=== PATIENT | male | born 1980 | race Caucasian/White ===

== ENCOUNTER 2020-01-13 14:15 | Emergency (ER) | payer BC ==
[~2020-01-13] VITALS: Ht 167.6 cm; Wt 138.6 kg
[2020-01-13 15:02] LABS: BASOPHILS # (AUTO) 0.1 X10'3 (0-0.2); BASOPHILS % (AUTO) 0.5 % (0-1); EOSINOPHILS # (AUTO) 0.2 X10'3 (0-0.9); EOSINOPHILS % (AUTO) 1.5 % (0-6); HEMATOCRIT 45.8 % (42.0-52.0); HEMOGLOBIN 15.3 g/dl (14.0-17.9); MEAN CORPUSCULAR HEMOGLOBIN 27.6 PG (27.0-31.0); MEAN CORPUSCULAR HGB CONC 33.4 g/dL (33.0-36.5); MEAN CORPUSCULAR VOLUME 82.8 FL (78-98); MEAN PLATELET VOLUME 7.9 FL (7.4-10.4); MONOCYTES # (AUTO) 0.7 X10'3 (0-0.9); MONOCYTES % (AUTO) 5.3 % (2-12); NEUTROPHILS # (AUTO) 10.3 X10'3 (1.8-7.7); NEUTROPHILS % (AUTO) 77.7 % (42-75); PLATELET COUNT 345 X10'3 (140-440); RED BLOOD COUNT 5.53 X10'6 (4.70-6.10); RED CELL DISTRIBUTION WIDTH 15.5 % (11.5-14.5); WHITE BLOOD COUNT 13.2 X10'3 (4.5-11.0)
[2020-01-13 15:06] LABS: CLARITY,URINE CLEAR (Clear); COLOR,URINE YELLOW (Yellow); GLUCOSE, URINE NEGATIVE (Neg); KETONES,URINE NEGATIVE (Neg); LEUKOCYTE ESTERASE ,URINE NEGATIVE (Neg); NITRITES, URINE NEGATIVE (Neg); OCCULT BLOOD,URINE NEGATIVE (Neg); PROTEIN,URINE NEGATIVE (Neg); UROBILINOGEN,URINE 0.2 E.U/dL (0.2-1.0)
[2020-01-13 15:08] LABS: UA COLLECTION TYPE URINAL
[2020-01-13 15:11] LABS: URINE AMPHETAMINE SCREEN NEGATIVE (Neg); URINE BARBITUATE SCREEN NEGATIVE (Neg); URINE BENZODIAZEPINES SCREEN NEGATIVE (Neg); URINE CANNABINOID SCREEN NEGATIVE (Neg); URINE COCAINE SCREEN NEGATIVE (Neg); URINE METHADONE SCREEN NEGATIVE (Neg); URINE OPIATE SCREEN NEGATIVE (Neg); URINE PHENCYCLIDINE SCREEN NEGATIVE (Neg)
[2020-01-13 15:17] LABS: ALANINE AMINOTRANSFERASE 30 U/L (12-78); ALBUMIN 3.8 G/DL (3.4-5.0); ALBUMIN/GLOBULIN RATIO 0.9 (1.1-1.5); ALKALINE PHOSPHATASE 77 IU/L (46-116); ANION GAP 7 (8-16); ASPARTATE AMINO TRANSFERASE 19 U/L (10-37); BILIRUBIN,TOTAL 0.4 MG/DL (0.1-1.0); BLOOD UREA NITROGEN 8 MG/DL (7-18); BUN/CREATININE RATIO 7.8 (5.4-32.0); CALCIUM 9.5 MG/DL (8.5-10.1); CHLORIDE 103 MMOL/L (99-107); CREATININE 1.02 MG/DL (0.60-1.10); GLUCOSE 109 MG/DL (70-104); POTASSIUM 3.8 MMOL/L (3.5-5.1); SODIUM 139 MMOL/L (135-145); TOTAL CARBON DIOXIDE 29.3 MMOL/L (24-32); TOTAL PROTEIN 7.9 G/DL (6.4-8.2); eGFR 81 ML/MIN
[2020-01-13 15:27] LABS: ETHANOL < 0.010 GM/DL (0.0-0.010)
--- NOTE | 2020-01-13 16:30 | NUR ---
Pt cooperative and wants to be here to get help. Denies any SI.
[2020-01-13] MEDS ORDERED: BUSP10TA11 PO (17:26)
[2020-01-13] MEDS ORDERED: VORT10TA PO (17:26)
[2020-01-13] MEDS ORDERED: LITH150C8 PO ×2 (17:26)
[2020-01-13] MEDS ORDERED: LORA-269 PO (17:26)
[2020-01-13] MEDS ORDERED: VORT20TA PO (17:26)
--- NOTE | 2020-01-13 17:40 | NUR ---
PATIENT'S MEDICATION REC COMPLETED. MEDS TAKEN TO PHARMACY FOR SAFE KEEPING. PATIENT INFORMED THAT MEDS WILL BE KEPT IN PHARMACY UNTIL DISCHARGE. PATIENT VERBALIZED UNDERSTANDING.
--- NOTE | 2020-01-13 19:25 | NUR ---
Patient was walked over to overflow from main ER by ERIN Poole. He is A&Ox3, CONTI and is appropriate.
--- NOTE | 2020-01-13 20:36 | NUR ---
Patient talking with [facility].
--- NOTE | 2020-01-13 21:00 | NUR ---
assumed care of patient why primary RN Rachel breaks . Pt up out of bed to bathroom . steady gait. pt asked for water to be poured in to his c pap machine to the fill line . Assisted patient in filling c pap with water to the fill line. Pt coroporative , good eye contact . pt in the direct line of sight of nursing staff. Will comntimue to monitor and reassess as needed
[2020-01-13] MEDS ORDERED: LORazepam 1 MG tablet PO PRN (22:05)
[2020-01-14 05:33] VITALS: BP 119/78
--- NOTE | 2020-01-14 06:30 | NUR ---
Patient resting with eyes closed, cpap on
--- NOTE | 2020-01-14 07:30 | NUR ---
Awake and cpap off, sitting quietly at edge of bed
[2020-01-14] MEDS ORDERED: voritoxetine HBr tablet 5 MG TABLET PO SCH (08:00)
[2020-01-14] MEDS ORDERED: non-formulary drug (Vortioxetine Hydrobromide (Brintellix) 1 TAB) PO SCH (08:00)
[2020-01-14] MEDS ORDERED: busPIRone 5mg tablet PO SCH (08:00)
[2020-01-14] MEDS ORDERED: lithium carbonate 150mg capsule PO SCH ×2 (08:00→21:00)
--- NOTE | 2020-01-14 08:37 | NUR ---
Patient tearful. States having anxiety that makes him nauseated. Given a prn dose of ativan with his meds
--- NOTE | 2020-01-14 09:20 | NUR ---
Patient now resting in bed with eyes closed
--- NOTE | 2020-01-14 10:30 | NUR ---
Patient seen and accepted by [facility]
--- NOTE | 2020-01-14 11:00 | NUR ---
Spoke with his mom on the phone, has been crying and tearful most of morning
--- NOTE | 2020-01-14 11:41 | NUR ---
Breaking primary RN, pt is wandering around, he just brought the phone back, then ambulated to bathroom
== END 2020-01-14 12:05 ==
LOC: ER 14:17
DX: F23 Brief psychotic disorder (principal); F41.9 Anxiety disorder, unspecified; F31.9 Bipolar disorder, unspecified; F17.200 Nicotine dependence, unspecified, uncomplicated; Z79.899 Other long term (current) drug therapy
CPT/HCPCS: 36415; 80053; 80178; 80305; 80320; 81003; 84443; 85025; 99285

== ENCOUNTER 2020-01-14 11:18 | Inpatient (IN) | payer BC ==
[~2020-01-14] VITALS: Ht 170.2 cm; Wt 120.4 kg
[~2020-01-14 11:18] MED LIST: BUSP10TA11 PO; LITH150C8 PO; LORA-269 PO; VORT10TA PO; VORT20TA PO
--- NOTE | 2020-01-14 12:15 | NUR ---
Pt. transfered from ER overflow to [facility] escorted by staff and security in wheelchair. Safety check down and pt.'s belongings inventoried. 2 RN skin assessment done and pt. showered and sitting in his room 39-year-old male with a history of depression and bipolar drove himself to ED with c/o severe anxiety and depression for the last 3 weeks to the point that he could not function. Pt. feels that social isolation has contributed to a lot of his symptoms. Pt. reports being completely overwhelmed by crying episodes. 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 Pt. states, "I think my mind just started wandering and going to dark places and it got me down". Pt. reports he has been compliant with his psychiatric medications including lithium, Invega, BuSpar, Ativan, and Trintellix. He does regularly see a therapist has an appointment scheduled for 01/31/2020. Pt. denies SI/HI, A/V hallucinations. Pt. reports gaining 5 lbs in the last 3 months from poor eating habits.
[2020-01-14 13:00] VITALS: BP 144/77
[2020-01-14] MEDS ORDERED: acetaminophen 325mg tablet PO PRN ×2 (13:20)
[2020-01-14] MEDS ORDERED: loperamide 2mg capsule PO PRN (13:20)
[2020-01-14] MEDS ORDERED: mag hydrox/Alum hydrox/simeth 30ml oral suspension PO PRN (13:20)
[2020-01-14] MEDS ORDERED: nicotine 21mg patch - 24 hr TD ONE (13:20)
[2020-01-14] MEDS ORDERED: magnesium hydroxide 30ml (MOM) UD suspension PO PRN (13:20)
[2020-01-14] MEDS: LORazepam 1 MG tablet PO PRN (18:25)
[2020-01-14 20:00] VITALS: BP 131/75
[2020-01-14] MEDS: lithium carbonate 150mg capsule PO SCH (20:13)
[2020-01-14] MEDS: busPIRone 5mg tablet PO SCH (20:13)
--- NOTE | 2020-01-15 01:15 | NUR ---
Nursing Progress Note:[] Legal hold:vol Client on voluntary/involuntary status for DTS Report received from nurse with use of SBAR[]. Why are they here: Pt. transfered from ER overflow to [facility] escorted by staff and security in wheelchair. Safety check down and pt.'s belongings inventoried. 2 RN skin assessment done and pt. showered and sitting in his room 39-year-old male with a history of depression and bipolar drove himself to ED with c/o severe anxiety and depression for the last 3 weeks to the point that he could not function. Pt. feels that social isolation has contributed to a lot of his symptoms. Pt. reports being completely overwhelmed by crying episodes. 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 Pt. states, "I think my mind just started wandering and going to dark places and it got me down". Pt. reports he has been compliant with his psychiatric medications including lithium, Invega, BuSpar, Ativan, and Trintellix. He does regularly see a therapist has an appointment scheduled for 01/31/2020. Pt. denies SI/HI, A/V hallucinations. Pt. reports gaining 5 lbs in the last 3 months from poor eating habits. Assessment What has happened this shift:Pt was isolating to his room at start of shift and stated that he had just recieved a prn Ativan. About 45 min later pt came out of room and walked around the unit. He had snack in the group room and watched tv with peers. He was med compliant and returned to his room after movie. During interview he states that he feels sad and anxious but has no thoughts to hurt him self. S/I, H/I:[] A/VH: [] Sleep:[] ADL's:[] Group attendance:[] Were meds taken:[] Any med S/E[] Mental Status Exam Appearance:[] Eye contact:[] Behavior:[] Speech:[] Mood:[] Affect:[] Thought process:[] Thought Content:[] Cognition:[] Insight:[] Judgment:[] Interventions PRN's used:[] Therapeutic interventions:[] Restraints/seclusion/emergency medication:[] Justification of Continued Inpatient Treatment:[]
[2020-01-15 08:00] VITALS: BP 131/73
[2020-01-15] MEDS ORDERED: voritoxetine HBr tablet 10 MG TABLET PO SCH (08:00)
[2020-01-15] MEDS: lithium carbonate 150mg capsule PO SCH ×2 (08:01→21:19)
[2020-01-15] MEDS: busPIRone 5mg tablet PO SCH ×3 (08:02→21:20)
[2020-01-15] MEDS: nicotine 21mg patch - 24 hr TD SCH (08:04)
[2020-01-15] MEDS: voritoxetine HBr tablet 5 MG TABLET PO SCH (08:07)
[2020-01-15 08:24] LABS: CHOL/HDL RATIO 7.1 (0.00-4.99); CHOLESTEROL 219 MG/DL (0-200); HDL CHOLESTEROL 31 MG/DL (35-60); LDL CHOLESTEROL 168 MG/DL (50-100); TRIGLYCERIDES 108 MG/DL (20-135)
[2020-01-15 08:37] LABS: HEMOGLOBIN A1C 5.8 % (4.5-6.2)
--- NOTE | 2020-01-15 10:00 | NUR ---
Group Therapy: Process Group This Clinicians goal for this process group were as follows: (1) Ask scaling questions about Patients current anxiety, depression, and irritability symptoms as a check-in. (2) Provide psychoeducation about CBT schema, presuppositions and filters through which all people view the world. (3) Discuss how thinking errors can skew the way we think, which can negatively impact our thoughts, feelings, and actions. (4) Provide psychoeducation on several different thinking errors. (5) Process Clients thoughts and reflections on this topic within the group milieu. Patient identified experiencing the following levels of anxiety, depression, and anger/irritability while present in the group milieu. Anxiety: 03/24 Depression: 03/24 Anger irritability: 08/24 Patient presented as open and cooperative within the group milieu. He reported that the newness of the surroundings and the people contributed to his increased symptoms of anxiety and depression. Patient frequently made insightful comments on the topic of thinking errors. Patient acknowledged that a fear-based thought that he had about being here currently, is that he may be here for an indefinite period of time. As a positive CBT reframe, Patient identified that while he was here within the medical milieu, then he would receive treatment that would help him to become more stable and feel better. Patient presented as verbally engaged and unobtrusive during session. Bryce Grigsby MA, VERONA Addendum: 01/16/20 at 0802 by Bryce Grigsby SS Amended: Links added.
[2020-01-15] MEDS: LORazepam 1 MG tablet PO PRN (10:04)
--- NOTE | 2020-01-15 18:15 | NUR ---
Nursing Progress Note: Legal hold: vol Client on voluntary/involuntary status for DTS Report received from Keara with use of SBAR. Why are they here: Pt. transferred from ER overflow to [facility] escorted by staff and security in wheelchair. Safety check down and pt.'s belongings inventoried. 2 RN skin assessment done and pt. showered and sitting in his room 39-year-old male with a history of depression and bipolar drove himself to ED with c/o severe anxiety and depression for the last 3 weeks to the point that he could not function. Pt. feels that social isolation has contributed to a lot of his symptoms. Pt. reports being completely overwhelmed by crying episodes. 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 Pt. states, "I think my mind just started wandering and going to dark places and it got me down". Pt. reports he has been compliant with his psychiatric medications including lithium, Invega, BuSpar, Ativan, and Trintellix. He does regularly see a therapist has an appointment scheduled for 01/31/2020. Pt. denies SI/HI, A/V hallucinations. Pt. reports gaining 5 lbs in the last 3 months from poor eating habits. Assessment What has happened this shift: Pt. mostly isolates to his room. Pt. did come out for group. 1:1 done at bedside, pt. reports sleeping better but still anxious and at emesis x1 this AM because of the anxiety. Pt. gives minimal responses during interview. Pt. denies SI/HI, A/V hallucinations. Pt. given Ativan 1mg po x1 with good effect. Pt. found napping multiple times throughout the day. S/I, H/I: Denies A/VH: Denies Sleep: Frequent naps. ADL's: Independent. Pt. showered. Group attendance: Yes Were meds taken: Yes Any med S/E None reported or observed. Mental Status Exam Appearance: Clean, neat, in personal clothing. Eye contact: normal Behavior: Isolates to his room. Speech: Clear, minimal Mood: Depressed and anxious Affect: Congruent with mood Thought process: Linear, some thought blocking. Thought Content: Anxiety, but difficult to assess because minimal information given. Cognition: A&Ox4 Insight: Fair Judgment: Fair Interventions PRN's used: Ativan x1 Therapeutic interventions: Introduced self and established rapport, maintained a safe and supportive environment, provided clear and simple instructions medication administration/education/monitoring, Q15 min safety checks. Restraints/seclusion/emergency medication: N/A Justification of Continued Inpatient Treatment: Patient requires interruption of current crisis, medication adjustments in a safe and therapeutic environment.
[2020-01-15 20:00] VITALS: BP 127/87
[2020-01-15] MEDS: clonazePAM 1mg tablet PO SCH (21:18)
--- NOTE | 2020-01-15 23:58 | NUR ---
Nursing Progress Note: Legal hold: vol Client on voluntary/involuntary status for DTS Report received from Tita with use of SBAR. Why are they here: Pt. transferred from ER overflow to [facility] escorted by staff and security in wheelchair. Safety check down and pt.'s belongings inventoried. 2 RN skin assessment done and pt. showered and sitting in his room 39-year-old male with a history of depression and bipolar drove himself to ED with c/o severe anxiety and depression for the last 3 weeks to the point that he could not function. Pt. feels that social isolation has contributed to a lot of his symptoms. Pt. reports being completely overwhelmed by crying episodes. 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 Pt. states, "I think my mind just started wandering and going to dark places and it got me down". Pt. reports he has been compliant with his psychiatric medications including lithium, Invega, BuSpar, Ativan, and Trintellix. He does regularly see a therapist has an appointment scheduled for 01/31/2020. Pt. denies SI/HI, A/V hallucinations. Pt. reports gaining 5 lbs in the last 3 months from poor eating habits. Assessment What has happened this shift: Pt states that he is feeling a little better today. Still depressed and anxious but was able to go to group room and watch tv with peers. Pt was talking with peers in the weiner and sat in the day room reading. He was med compliant and cooperative with staff. S/I, H/I: Denies A/VH: Denies Sleep: slept well ADL's: Independent. Pt. showered. Group attendance: Yes Were meds taken: Yes Any med S/E None reported or observed. Mental Status Exam Appearance: Clean, neat, in personal clothing. Eye contact: normal Behavior: Isolates to his room. Speech: Clear, minimal Mood: Depressed and anxious Affect: Congruent with mood Thought process: Linear, some thought blocking. Thought Content: Anxiety, but difficult to assess because minimal information given. Cognition: A&Ox4 Insight: Fair Judgment: Fair Interventions PRN's used: none Therapeutic interventions: Introduced self and established rapport, maintained a safe and supportive environment, provided clear and simple instructions medication administration/education/monitoring, Q15 min safety checks. Restraints/seclusion/emergency medication: N/A
[2020-01-16 08:00] VITALS: BP 122/80
[2020-01-16] MEDS: busPIRone 5mg tablet PO SCH ×3 (08:45→21:01)
[2020-01-16] MEDS: clonazePAM 1mg tablet PO SCH ×2 (08:45→21:01)
[2020-01-16] MEDS: lithium carbonate 150mg capsule PO SCH ×2 (08:46→21:01)
[2020-01-16] MEDS: voritoxetine HBr tablet 5 MG TABLET PO SCH (08:46)
[2020-01-16] MEDS: nicotine 21mg patch - 24 hr TD SCH (08:47)
--- NOTE | 2020-01-16 10:00 | NUR ---
Group Therapy: Process Group This Clinicians goals for this process group were as follows: (1) Ask scaling questions about Patients current anxiety, depression, and irritability symptoms as a check-in. (2) Share psychoeducation about emotional escalation as it relates to stress and negative symptoms, Fight, flight, freeze. (3) Share psychoeducation on principles of mindfulness and emotional relaxation techniques that Patients may utilize to reduce the acuity of unwanted emotional escalation. (4) Provide psychoeducation on the STOPP acronym: Stop, Take a Breath, Observe the situation, Put things into perspective, and, Practice what works. (5) Process Clients thoughts and reflections on this topic within the group milieu. Patient identified experiencing the following levels of anxiety, depression, and anger/irritability while present in the group milieu. Anxiety: 02/21 Depression: 02/21 Anger irritability: 09/24 Patient presented as open and cooperative within the group milieu. Patient was dressed in a blue superman t-shirt, which stood out to this Clinician as noticeable. Patient was verbally engaged in the discussion about emotional escalation and interventions that he could utilize in order to reduce unwanted symptoms of depression, anxiety, and irritability. He specifically identified that playing video games and talking to supportive members of his family often assisted him in reducing maladaptive symptoms of emotional escalation. Patient presented as calm and unobtrusive within the group milieu. Bryce Grigsby MA, VERONA Addendum: 01/17/20 at 0813 by Bryce Grigsby SS Amended: Links added.
--- NOTE | 2020-01-16 12:16 | NUR ---
Nursing Progress Note: Legal hold: Voluntary Client on voluntary status for DTS Report received from nurse with use of SBAR: ERIN Sarah Why are they here: Pt. transferred from ER overflow, he is a 39-year-old male with a history of depression and bipolar. Pt. drove himself to ED with c/o severe anxiety and depression for the last 3 weeks to the point that he could not function. Pt. feels that social isolation has contributed to a lot of his symptoms. He reports being completely overwhelmed by crying episodes. 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 Pt. states, "I think my mind just started wandering and going to dark places and it got me down". Pt. reports he has been compliant with his psychiatric medications, and does regularly see a therapist, has an appointment scheduled for 01/31/2020. Pt. denies SI/HI, A/V hallucinations. Pt. reports gaining 5 lbs in the last 3 months from poor eating habits. Assessment What has happened this shift: Received pt. laying in bed sleeping at the beginning of the shift, he awoke for breakfast and Cpap machine was removed from his room and placed in locker for safety precautions. Attempted to complete 1:1 at bedside, pt. presents as cooperative, fatigued, guarded, and isolative, he continues to isolate in his room throughout most the shift reading in bed. Pt. is very polite, however speech is minimal and abrupt at times, he answers most questions with one-two word responses or states, "I'm fine, thank you." Pt. denies any S/I, H/I, A/V/BALTAZAR, and no delusional statements made. He appears to be minimizing, but does admit to some continued anxiety, states, "I just want to go home." Pt. 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 When questioned by this entry writer if his dislike for his job could be contributing to his depression, pt. states flatly, "Probably so." In the afternoon, pt. was moved to another room and now has a roommate, he appears to be tolerating the change well, will continue to monitor. S/I, H/I: Denies A/VH: Denies, does not appear internally preoccupied Sleep: Pt. reports that his sleep was "Restless," sleep hours indicate 7.5 hours ADL's: Requires some encouragement from staff Group attendance: Yes Were meds taken: Yes Any med S/E: None Mental Status Exam Appearance: Hair slightly disheveled r/t laying in bed, and pt. remained in his pajamas throughout the day Eye contact: Fair Behavior: Cooperative, fatigued, guarded, and isolative Speech: Soft, abrupt at times. 1-2 word responses Mood: Depressed/hopeless Affect: Flat Thought process: Poverty of thought/appears to be minimizing Thought Content: Continued anxiety and some preoccupation with discharge Cognition: A&O X4 Insight: Poor Judgment: Poor Interventions PRN's used: None Therapeutic interventions: Introduced self and established rapport, maintained a safe and supportive environment, ensured contract for safety,monitored behaviors and need for intervention, provided clear and simple instructions, encouraged independent performance of ADLs, and maintained a safe and supportive environment. Restraints/seclusion/emergency medication: N/A Justification of Continued Inpatient Treatment: Pt. requires interruption of current crisis, medication adjustments, and a safe and supportive environment.
[2020-01-16 20:17] VITALS: BP 134/82
--- NOTE | 2020-01-17 00:17 | NUR ---
Nursing Progress Note: Legal hold: Voluntary Client on voluntary status for DTS Report received from nurse with use of SBAR: Lucio RN Why are they here: Pt. transferred from ER overflow, he is a 39-year-old male with a history of depression and bipolar. Pt. drove himself to ED with c/o severe anxiety and depression for the last 3 weeks to the point that he could not function. Pt. feels that social isolation has contributed to a lot of his symptoms. He reports being completely overwhelmed by crying episodes. Pt. 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 Pt. states, "I think my mind just started wandering and going to dark places and it got me down". Pt. reports he has been compliant with his psychiatric medications, and does regularly see a therapist, has an appointment scheduled for 01/31/2020. Pt. denies SI/HI, A/V hallucinations. Pt. reports gaining 5 lbs in the last 3 months from poor eating habits. Assessment What has happened this shift: Pt was in his room at change of shift. He states he is feeling good, denies depression, states he is hoping to go home tomorrow and plans to follow up with outpatient therapists. Pt started [employer] tonight and received education on medication s/e. Pt reports appetite is good. S/I, H/I: Denies A/VH: Denies Sleep: see sleep hours ADL's: Requires some encouragement from staff Group attendance: Yes Were meds taken: Yes Any med S/E: None Mental Status Exam Appearance: Pt is wearing pajamas, hair is unkempt. Pt remained in bed today Eye contact: Fair Behavior: Cooperative, fatigued, guarded, and isolative Speech: Soft, abrupt at times. 1-2 word responses Mood: endorses some depression but he is smiling Affect: constricted Thought process: Poverty of thought/appears to be minimizing Thought Content: Continued anxiety and talking about discharge plan Cognition: A&O X4 Insight: Poor Judgment: Poor Interventions PRN's used: None Therapeutic interventions: Introduced self and established rapport, maintained a safe and supportive environment, ensured contract for safety,monitored behaviors and need for intervention, provided clear and simple instructions, encouraged independent performance of ADLs, and maintained a safe and supportive environment. Restraints/seclusion/emergency medication: N/A Justification of Continued Inpatient Treatment: Pt. requires interruption of current crisis, medication adjustments, and a safe and supportive environment.
[2020-01-17] MEDS: busPIRone 5mg tablet PO SCH (07:40)
[2020-01-17] MEDS: lithium carbonate 150mg capsule PO SCH (07:41)
[2020-01-17] MEDS: clonazePAM 1mg tablet PO SCH (07:41)
[2020-01-17] MEDS: nicotine 21mg patch - 24 hr TD SCH (07:43)
[2020-01-17] MEDS: voritoxetine HBr tablet 5 MG TABLET PO SCH (07:59)
[2020-01-17 08:04] VITALS: BP 128/76
--- NOTE | 2020-01-17 08:34 | NUR ---
SARA SS had t/c w/pt's mother, pt had signed JOAQUIM for [facility] to speak w/his mother, mother inquired about pt's status & progress. Per t/c mother was informed about possible d/c of this afternoon or tomorrow. Mother asked that we contact her when pt is d/c-ing. Lala Ureña, W[employer] Addendum: 01/17/20 at 0836 by Lala Ureña Amended: Links added.
--- NOTE | 2020-01-17 10:00 | NUR ---
Group Therapy: Process Group This Clinicians goals for this process group were as follows: (1) Ask scaling questions about Patients current anxiety, depression, and irritability symptoms as a check-in. (2) Share with Patients psychoeducation about the importance of being able to identify safe, and supportive people who can assist them with their mental and emotional needs. (3) Share psychoeducation on interpersonal boundaries and considerations to assist Patients in developing the ability to discern which groups and individuals will be helpful in assisting them during times of emotional escalation and crisis. (4) Review emotional relaxation techniques (5) Engage Patients in discussion of the topics discussed within the group milieu. Patient identified experiencing the following levels of anxiety, depression, and anger/irritability while present in the group milieu. Anxiety: 12/22 Depression: 10/22 Anger irritability: 09/24 Patient presented as open and cooperative within the group milieu. Patient was dressed in a blue, Superman T-shirt, with decorated, black sweat pants. Patient presented as verbally engaged, and non-obtrusive within the group milieu, frequently making insightful comments about questions that he could ask certain people in order to determine whether or not those people could be trusted with hearing more information about his relevant mental health needs insofar as it relates to him developing what he stated was a, "Support system." Bryce Grigsby MA, VERONA Addendum: 01/17/20 at 1117 by Bryce Grigsby SS Amended: Links added.
[2020-01-17] MEDS ORDERED: CLON1TAB12 PO (15:11)
[2020-01-17] MEDS ORDERED: BREX1TAB PO (15:11)
[2020-01-17] MEDS ORDERED: NICO-669 BC (15:11)
[2020-01-17] MEDS ORDERED: LITH150C8 PO (15:11)
[2020-01-17] MEDS ORDERED: NICO-687 TD (15:11)
--- NOTE | 2020-01-17 16:41 | NUR ---
Discharge note: Client to discharge this facility in the company of his Mother at 1700 hours. All discharge information has been explained and given to this patient. Client states he is safe to return home and is aware of resources in the event of another crisis. All belongings including medications were give at time of discharge. Client understands his aftercare instructions. Client condition is greatly improved upon discharge and he is aware of circumstances of this discharge.
== END 2020-01-17 17:00 | disposition home or self-care (01) | DRG 885 ==
LOC: ADULT MH 11:18
PROVIDERS: ADMIT Psychiatry & Neurology Psychiatry; ATTEND Psychiatry & Neurology Psychiatry
PROC: 5A09357 Assistance with Respiratory Ventilation, Less than 24 Consecutive Hours, Continuous Positive Airway Pressure (ICD-10-PCS; principal; 2020-01-17)
DX: F33.2 Major depressive disorder, recurrent severe without psychotic features (principal); Z68.41 Body mass index [BMI] 40.0-44.9, adult; E66.9 Obesity, unspecified; F17.210 Nicotine dependence, cigarettes, uncomplicated; F41.1 Generalized anxiety disorder; G47.33 Obstructive sleep apnea (adult) (pediatric); Z82.49 Family history of ischemic heart disease and other diseases of the circulatory system; Z71.6 Tobacco abuse counseling
CPT/HCPCS: 36415; 80061; 83036; 87081; 99285

== ENCOUNTER 2020-04-10 14:41 | Emergency (ER) | payer BC ==
[~2020-04-10] VITALS: Ht 170.2 cm; Wt 143.2 kg
[~2020-04-10 14:41] MED LIST changes: +BREX1TAB PO; +CLON1TAB12 PO; -LITH150C8 PO; -LORA-269 PO; +NICO-669 BC; +NICO-687 TD
[2020-04-10 15:36] LABS: BASOPHILS # (AUTO) 0.1 X10'3 (0-0.2); BASOPHILS % (AUTO) 0.8 % (0-1); EOSINOPHILS # (AUTO) 0.4 X10'3 (0-0.9); HEMATOCRIT 47.9 % (42.0-52.0); HEMOGLOBIN 15.8 g/dl (14.0-17.9); LYMPHOCYTES # (AUTO) 2.6 X10'3 (1.1-4.8); LYMPHOCYTES % (AUTO) 19.8 % (21-51); MEAN CORPUSCULAR HEMOGLOBIN 27.3 PG (27.0-31.0); MEAN CORPUSCULAR VOLUME 82.9 FL (78-98); MEAN PLATELET VOLUME 8.4 FL (7.4-10.4); MONOCYTES # (AUTO) 0.8 X10'3 (0-0.9); NEUTROPHILS # (AUTO) 9.1 X10'3 (1.8-7.7); NEUTROPHILS % (AUTO) 70.4 % (42-75); PLATELET COUNT 319 X10'3 (140-440); RED BLOOD COUNT 5.78 X10'6 (4.70-6.10); RED CELL DISTRIBUTION WIDTH 14.8 % (11.5-14.5)
[2020-04-10 15:53] LABS: ALANINE AMINOTRANSFERASE 41 U/L (12-78); ALBUMIN 3.9 G/DL (3.4-5.0); ALBUMIN/GLOBULIN RATIO 0.9 (1.1-1.5); ALKALINE PHOSPHATASE 71 IU/L (46-116); ANION GAP 7 (8-16); ASPARTATE AMINO TRANSFERASE 23 U/L (10-37); BILIRUBIN,TOTAL 0.5 MG/DL (0.1-1.0); BLOOD UREA NITROGEN 13 MG/DL (7-18); BUN/CREATININE RATIO 12.3 (5.4-32.0); CALCIUM 9.6 MG/DL (8.5-10.1); CHLORIDE 103 MMOL/L (99-107); CREATININE 1.06 MG/DL (0.60-1.10); GLUCOSE 116 MG/DL (70-104); LIPASE 87 U/L (73-393); POTASSIUM 3.8 MMOL/L (3.5-5.1); SODIUM 139 MMOL/L (135-145); TOTAL CARBON DIOXIDE 29.4 MMOL/L (24-32); TOTAL PROTEIN 8.1 G/DL (6.4-8.2); eGFR 77 ML/MIN
[2020-04-10 16:09] VITALS: BP 131/79
[2020-04-10 16:30] LABS: CLARITY,URINE CLEAR (Clear); COLOR,URINE YELLOW (Yellow); GLUCOSE, URINE NEGATIVE (Neg); KETONES,URINE NEGATIVE (Neg); LEUKOCYTE ESTERASE ,URINE NEGATIVE (Neg); NITRITES, URINE NEGATIVE (Neg); OCCULT BLOOD,URINE NEGATIVE (Neg); PROTEIN,URINE NEGATIVE (Neg); UROBILINOGEN,URINE 0.2 E.U/dL (0.2-1.0)
[2020-04-10 16:31] LABS: UA COLLECTION TYPE CLN CATCH MIDSTREAM
[2020-04-10 16:39] LABS: BACTERIA,URINE FEW /HPF (Neg); MUCUS STRANDS FEW /LPF (Neg); RBC,URINE 0-2 /HPF (0-2); SQUAMOUS EPITHELIAL CELL,UR FEW /LPF (FEW); WBC,URINE 0-4 /HPF (0-4)
[2020-04-10] MEDS ORDERED: ONDA4TAB6 PO (18:06)
[2020-04-11 06:27] LABS: OCCULT BLOOD STOOL NEGATIVE (Neg)
== END 2020-04-10 18:18 | disposition home or self-care (01) ==
LOC: ER 14:41
DX: K92.1 Melena (principal); K29.00 Acute gastritis without bleeding; K57.30 Diverticulosis of large intestine without perforation or abscess without bleeding; R11.2 Nausea with vomiting, unspecified; F41.9 Anxiety disorder, unspecified; F31.9 Bipolar disorder, unspecified; Z79.899 Other long term (current) drug therapy
CPT/HCPCS: 36415; 74176; 80053; 81001; 82272; 83690; 85025; 99284

== ENCOUNTER 2021-03-17 14:53 | Emergency (ER) | payer BC ==
[~2021-03-17] VITALS: Ht 175.3 cm; Wt 95.5 kg
[~2021-03-17 14:53] MED LIST changes: +ONDA4TAB6 PO
[2021-03-17 15:12] VITALS: BP 120/82
== END 2021-03-17 17:59 | disposition home or self-care (01) ==
LOC: ER 14:54
DX: U07.1 COVID-19 (principal); R51.9 Headache, unspecified; R06.02 Shortness of breath; R50.9 Fever, unspecified; R53.83 Other fatigue; F41.9 Anxiety disorder, unspecified; F31.9 Bipolar disorder, unspecified; Z88.8 Allergy status to other drugs, medicaments and biological substances; Z79.899 Other long term (current) drug therapy
CPT/HCPCS: 87635; 99283; C9803